=== PATIENT | male | born 1985 | race Hispanic/Latino ===

== ENCOUNTER → 2024-04-23 | Outpatient (CLI) | payer OTHER ==
--- NOTE | 2024-04-23 16:49 | HMCSR ---
APPROVED REPORT EXAM: Two-dimensional and M-mode echocardiogram with Doppler and color Doppler. INDICATION ICD: Z86.79 2D Dimensions RVDd3.7 cmLVEF(%)59.8 (>50%)LVED Vol(simp.)156.0 mL IVSd1.5 (0.7-1.1cm)FS(%)32 %LVES Vol(simp.)63.6 mL LVDd5.0 (3.8-5.6cm)LA (2D)4.7 (1.6-4.0cm)LVEF(%, simp.)59 % PWd1.4 (0.7-1.1cm)Ao Root(2D)3.8 (2.0-3.7cm)LA ESV INDEX (4CH)38.20 mL/m2 IVSs1.5 cmLVOT diam2.6 (1.8-2.4cm)LA ESV INDEX (2CH)45.10 mL/m2 LVDs3.4 (2.5-4.0cm)LA ESV INDEX (BP)45.70 mL/m2 PWs1.8 cm Aortic Valve AoV VTI0.3 mAo Mean GR6.0 mmHgLVOT VTI0.16 m BRUNILDA (VMAX)3.2 cm2Al P1/2T560 msAVA (VTI) 3.2 cm2 Mitral Valve MV E Vmax86.8 cm/sDECEL Ixlg113 ms MV A Vmax86.3 cm/sP 1/2 T59 ms E/A ratio1.0MVA (PHT)3.7 cm2 MR Max PG49 mmHg TDI E/E' Yczkks47.4E/E' Wkmsscb85.4 Medial E' Peak V7.60 cm/sLateral E' Peak V7.60 cm/s Pulmonary Valve PV VTI0.38 mPV Mean GR7 mmHg Left Ventricle The left ventricle is normal size. There is normal LV segmental wall motion. There is normal left ida tricular wall thickness. LVEF is 55-60%. The left ventricular diastolic function is normal. Right Ventricle The right ventricle is normal size. The right ventricular systolic function is normal. Atria The left atrium is moderately dilated. The right atrium is moderately dilated. Aortic Valve The aortic valve is normal in structure. Mild aortic regurgitation is present. There is no aortic tim vular stenosis. Mitral Valve Mitral valve leaflets open well. Mitral valve leaflets appear myxomatous. There is mild mitral valve regurgitation noted. There is no mitral valve stenosis. Tricuspid Valve The tricuspid valve is normal in structure. There is no tricuspid valve regurgitation noted. Pulmonic Valve The pulmonary valve is normal in structure. There is no pulmonic valvular regurgitation. Great Vessels The aortic root is normal in size. The IVC is normal in size and collapses >50% with inspiration. Pericardium There is no pericardial effusion. Conclusion LVEF is 55-60%. There is normal LV segmental wall motion. Mild aortic regurgitation is present. There is mild mitral valve regurgitation noted.
== END | disposition home or self-care (01) ==
LOC: EEVIPCON 13:13 → RAH 13:13
PROVIDERS: ATTEND Family Medicine
DX: I08.0 Rheumatic disorders of both mitral and aortic valves (principal); Z86.79 Personal history of other diseases of the circulatory system
CPT/HCPCS: 93306